=== PATIENT | male | born 1970 | race Two or more races ===

== ENCOUNTER 2018-09-15 11:45 | Emergency (ER) | payer BC ==
[2018-09-15] MEDS ORDERED: Sodium Chloride 0.9% 10 ML Syringe FLUSH PRN (12:15)
--- NOTE | 2018-09-15 12:31 | EDM.PDOC ---
ED HPI GENERAL MEDICAL PROBLEM - General Chief Complaint: Cardiovascular Problem Stated Complaint: HEART RACING - SOB X 1 WEEK Time Seen by Provider: 09/15/18 12:00 Source of Information: Reports: Patient History Limitations: Reports: Intoxication - History of Present Illness INITIAL COMMENTS - FREE TEXT/NARRATIVE: 48 year old male presents for evaluation and treatment of chest tightness, palpations and shortness of breath. Patient for the last week states he's been experiencing a racing heart, tightness in his chest and shortness of breath. Reports symptoms with exertion, little to no symptoms at rest. Denies any fevers, chills, nausea, vomiting, lightheadedness, dizziness, fevers, chills, cough or abdominal pain. No pain or swelling in his legs. Patient also feels he is going to the bathroom more than normal. Denies any acute polydipsia. Patient reports recent dental surgery, wisdom teeth extraction done under local sedation. Did not utilize pain medication. Finished course of antibiotics. Patient reports he resided in [place]. In [place] for work. Did drive to [place] a couple of weeks ago. Duration: Week(s): (1) - Related Data Allergies Allergy/AdvReac Type Severity Reaction Status Date / Time No Known Allergies Allergy Verified 09/15/18 11:59 Home Meds: Home Meds Albuterol [Ventolin HFA] 1 puff INH Q4H PRN #1 inhaler 09/15/18 [Rx] Ibuprofen [Ibu] 800 mg PO ASDIRECTED PRN 09/15/18 [History] Inhaler, Assist Devices [Space Chamber Plus] 1 each MC ASDIRECTED PRN #1 spacer 09/15/18 [Rx] Pantoprazole Sodium 40 mg PO DAILY 09/15/18 [History] Past Medical History HEENT History: Reports: Impaired Vision Cardiovascular History: Reports: High Cholesterol Other Cardiovascular History: off medication for over a year Gastrointestinal History: Reports: GERD Musculoskeletal History: Reports: Arthritis - Past Surgical History HEENT Surgical History: Reports: Oral Surgery Musculoskeletal Surgical History: Reports: Carpal Tunnel Social & Family History - Family History Family Medical History: Noncontributory Respiratory: Reports: Interstitial Lung Disease - Tobacco Use Smoking Status *Q: Current Every Day Smoker Years of Tobacco use: 10 Packs/Tins Daily: 1 - Caffeine Use Caffeine Use: Reports: Coffee, Energy Drinks - Recreational Drug Use Recreational Drug Use: No ED ROS GENERAL - Review of Systems Review Of Systems: See Below Constitutional: Denies: Fever, Chills Respiratory: Denies: Cough Cardiovascular: Reports: Chest Pain (reports chest tightness), Dyspnea on Exertion, Palpitations. Denies: Edema, Lightheadedness, Syncope Endocrine: Reports: Polyuria. Denies: Polydypsia GI/Abdominal: Denies: Abdominal Pain, Nausea, Vomiting Neurological: Denies: Dizziness, Headache, Syncope ED EXAM, GENERAL - Physical Exam Exam: See Below Exam Limited By: No Limitations General Appearance: Alert, WD/WN, No Apparent Distress Nose: Normal Inspection Throat/Mouth: Normal Inspection, Normal Lips, Normal Voice, No Airway Compromise Respiratory/Chest: No Respiratory Distress, Lungs Clear, Normal Breath Sounds Cardiovascular: Normal Peripheral Pulses, Regular Rate, Rhythm, No Murmur GI/Abdominal: Normal Bowel Sounds, Soft, Non-Tender Neurological: Alert, Oriented, Normal Cognition Psychiatric: Normal Affect, Normal Mood Skin Exam: Warm, Dry, Normal Color EKG INTERPRETATION EKG Date: 09/15/18 Time: 12:33 Rhythm: NSR Rate (Beats/Min): 77 Canones: Normal P-Wave: Present QRS: Normal ST-T: Normal QT: Normal EKG Interpretation Comments: NSR at 77 bpm. Poor "r" wave progression. Reviewed by myself and Dr. Warner. Course - Vital Signs Last Recorded V/S: Last Vital Signs Temp 98.5 F 09/15/18 12:03 Pulse 87 09/15/18 14:08 Resp 18 09/15/18 14:08 BP 134/91 H 09/15/18 14:08 Pulse Ox 97 09/15/18 14:08 - Orders/Labs/Meds Orders: Active Orders 24 hr Category Date Time Status Cardiac Monitoring [RC] . DIRECTED Care 09/15/18 12:13 Active EKG Documentation Completion [RC] ASDIRECTED Care 09/15/18 12:14 Active Peripheral IV Care [RC] . DIRECTED Care 09/15/18 12:15 Active Peripheral IV Insertion Adult [OM.PC] Routine Oth 09/15/18 12:15 Ordered EKG 12 Lead [EK] Stat Ther 09/15/18 12:13 Ordered Labs: Laboratory Tests 01/22/19 01/22/19 01/22/19 Range/Units 12:20 12:20 12:20 WBC 4.35 (4.23-9.07) K/mm3 RBC 6.23 H (4.63-6.08) M/mm3 Hgb 16.4 (13.7-17.5) gm/L Hct 48.6 (40.1-51.0) % MCV 78.0 L (79.0-92.2) fl MCH 26.3 (25.7-32.2) pg MCHC 33.7 (32.2-35.5) g/dl RDW Std Deviation 43.9 (35.1-43.9) fL Plt Count 296 (163-337) K/mm3 MPV 8.9 L (9.4-12.3) fl Neut % (Auto) 54.1 (34.0-67.9) % Lymph % (Auto) 30.3 (21.8-53.1) % Cass % (Auto) 10.8 (5.3-12.2) % Eos % (Auto) 4.6 (0.8-7.0) Baso % (Auto) 0.2 (0.1-1.2) % Neut # (Auto) 2.35 (1.78-5.38) K/mm3 Lymph # (Auto) 1.32 (1.32-3.57) K/mm3 Cass # (Auto) 0.47 (0.30-0.82) K/mm3 Eos # (Auto) 0.20 (0.04-0.54) K/mm3 Baso # (Auto) 0.01 (0.01-0.08) K/mm3 Manual Slide Review Abnormal smear D-Dimer, Quantitative < 0.19 L (0.19-0.50) mg/L Sodium 140 (136-145) mEq/L Potassium 3.9 (3.5-5.1) mEq/L Chloride 102 (98-107) mEq/L Carbon Dioxide 29 (21-32) mEq/L Anion Gap 12.9 (5-15) BUN 14 (7-18) mg/dL Creatinine 1.2 (0.7-1.3) mg/dL Est Cr Clr Drug Dosing 72.04 mL/min Estimated GFR (MDRD) > 60 (>60) mL/min BUN/Creatinine Ratio 11.7 L (14-18) Glucose 91 (74-106) mg/dL Calcium 9.3 (8.5-10.1) mg/dL Total Bilirubin 1.1 H (0.2-1.0) mg/dL AST 23 (15-37) U/L ALT 44 (16-63) U/L Alkaline Phosphatase 100 (46-116) U/L CK-MB (CK-2) 1.8 (0-3.6) ng/ml Troponin I < 0.017 (0.00-0.056) ng/mL Total Protein 7.7 (6.4-8.2) g/dl Albumin 4.1 (3.4-5.0) g/dl Globulin 3.6 gm/dL Albumin/Globulin Ratio 1.1 (1-2) TSH 3rd Generation 1.959 (0.358-3.74) uIU/mL Meds: Medications Discontinued Medications Generic Name Dose Route Start Last Admin Trade Name Freq PRN Reason Stop Dose Admin Sodium Chloride 10 ml 09/15/18 12:15 09/15/18 12:28 Saline Flush FLUSH 10 ml ASDIRECTED PRN Administration Keep Vein Open - Radiology Interpretation Free Text/Narrative:: Chest: 2 views of the chest were obtained. Comparison: No prior chest x-ray. Heart size is normal. Tortuous thoracic aorta is seen. Lungs are clear with no acute parenchymal change. Bony structures appear within normal limits. Impression: 1. Nothing acute is seen on 2 view chest x-ray. - Re-Assessments/Exams Free Text/Narrative Re-Assessment/Exam: 09/15/18 13:46 I reviewed the labs, EKG and imaging with the patient. Suspect might be getting a little bit of exercise-induced asthma. We will try him on albuterol inhaler and follow-up if not much better. Recommend smoking cessation as this is worsening his symptoms. He is instructed to the ER if his symptoms change or worsen. Discharge instructions as documented. Departure - Departure Time of Disposition: 13:46 Disposition: Home, Self-Care 01 Condition: Fair Clinical Impression: Exercise-induced asthma Prescriptions: Albuterol [Ventolin HFA] 1 puff INH Q4H PRN #1 inhaler PRN Reason: Shortness Of Breath Inhaler, Assist Devices [Space Chamber Plus] 1 each MC ASDIRECTED PRN #1 spacer PRN Reason: Shortness Of Breath Instructions: Asthma, Adult Referrals: PCP,Not In Area [Primary Care Provider] - Nalini Madrid MD [Physician] - Forms: ED Department Discharge Additional Instructions: Use the inhaler as instructed with the spacer. One or 2 puffs every 4-6 hours as needed for shortness of breath. Follow-up with family medicine in 2 weeks for recheck of your symptoms. Here in [place] recommend Dr. Madrid. Call [phone] to schedule with her. Recommend stopping smoking or at least reducing your cigarette usage. Please return to the ER if your symptoms change or worsen. - My Orders Last 24 Hours: My Active Orders 09/15/18 12:13 Cardiac Monitoring [RC] . DIRECTED EKG 12 Lead [EK] Stat 09/15/18 12:14 EKG Documentation Completion [RC] ASDIRECTED 09/15/18 12:15 Peripheral IV Care [RC] . DIRECTED Peripheral IV Insertion Adult [OM.PC] Routine - Assessment/Plan Last 24 Hours: My Active Orders 09/15/18 12:13 Cardiac Monitoring [RC] . DIRECTED EKG 12 Lead [EK] Stat 09/15/18 12:14 EKG Documentation Completion [RC] ASDIRECTED 09/15/18 12:15 Peripheral IV Care [RC] . DIRECTED Peripheral IV Insertion Adult [OM.PC] Routine
--- NOTE | 2018-09-15 14:43 | CR ---
Chest: Two views of the chest were obtained. Comparison: No prior chest x-ray. Heart size is normal. Tortuous thoracic aorta is seen. Lungs are clear with no acute parenchymal change. Bony structures appear within normal limits. Impression: 1. Nothing acute is seen on two-view chest x-ray. Diagnostic code #1
== END 2018-09-15 14:07 | disposition home or self-care (01) ==
LOC: JD.ED 11:45
DX: J45.909 Unspecified asthma, uncomplicated (principal); F17.210 Nicotine dependence, cigarettes, uncomplicated
CPT/HCPCS: 36415; 71046; 71046-26; 80053; 82553; 84443; 84484; 85025; 85379; 93005; 93010; 99284; 99285-25

== ENCOUNTER 2018-09-16 13:28 | Emergency (ER) | payer BC ==
[2018-09-16] MEDS ORDERED: LORazepam 0.5 MG Tab PO ONE (14:32)
--- NOTE | 2018-09-16 14:41 | EDM.PDOC ---
ED HPI GENERAL MEDICAL PROBLEM - General Chief Complaint: Respiratory Problem Stated Complaint: RESPIRATORY ISSUES Time Seen by Provider: 09/16/18 13:42 Source of Information: Reports: Patient, RN Notes Reviewed History Limitations: Reports: No Limitations - History of Present Illness INITIAL COMMENTS - FREE TEXT/NARRATIVE: Patient is a 48 year old male who presents to the ED for the evaluation of chest pressure/tightness and SOB with activity. He states that he was in the ED yesterday for his heart racing and SOB issues. He was given an albuterol inhaler at that time; he did state that he tried to use this, but it did not provide much relief of his symptoms. He states that this has been present for around 1 week. He is originally from [place] and his PCP is there. He still feels that his heart is racing and that he is having an issue catching his breath now even at rest. He is a 1ppd smoker for 10 years now, but did throw his cigarettes out after lunch today. He does drink a 30 oz yeti cup of coffee in the mornings, he does deny any further drug use. He uses alcohol only socially. He has been in [place] since February of 2018, and has been here in times past a few years ago, and has not had any issues like this. He denies any major life changes/stressors. 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 He denies any fevers/chills, nausea/vomiting/diarrhea or abdominal pain. He only admits to the SOB and feelings of his heart racing with some chest pressure. - Related Data Allergies Allergy/AdvReac Type Severity Reaction Status Date / Time No Known Allergies Allergy Verified 09/15/18 11:59 Home Meds: Home Meds Albuterol [Ventolin HFA] 1 puff INH Q4H PRN #1 inhaler 09/15/18 [Rx] Ibuprofen [Ibu] 800 mg PO ASDIRECTED PRN 09/15/18 [History] Inhaler, Assist Devices [Space Chamber Plus] 1 each MC ASDIRECTED PRN #1 spacer 09/15/18 [Rx] Pantoprazole Sodium 40 mg PO DAILY 09/15/18 [History] LORazepam [Ativan] 0.5 mg PO Q6HR PRN #40 tablet 09/16/18 [Rx] Past Medical History HEENT History: Reports: Impaired Vision Cardiovascular History: Reports: High Cholesterol Other Cardiovascular History: off medication for over a year Gastrointestinal History: Reports: GERD Musculoskeletal History: Reports: Arthritis - Past Surgical History HEENT Surgical History: Reports: Oral Surgery Musculoskeletal Surgical History: Reports: Carpal Tunnel Social & Family History - Family History Family Medical History: Noncontributory Respiratory: Reports: Interstitial Lung Disease - Tobacco Use Smoking Status *Q: Current Every Day Smoker Tobacco Use Within Last Twelve Months: Cigarettes Years of Tobacco use: 10 Packs/Tins Daily: 1 Smoking Cessation Information Provided To Patient: Yes - Caffeine Use Caffeine Use: Reports: Coffee, Soda - Recreational Drug Use Recreational Drug Use: No ED ROS GENERAL - Review of Systems Review Of Systems: See Below Constitutional: Denies: Fever, Chills, Weakness, Fatigue HEENT: Reports: No Symptoms Respiratory: Reports: Shortness of Breath. Denies: Wheezing, Cough, Sputum Cardiovascular: Reports: Chest Pain (chest pressure), Dyspnea on Exertion. Denies: Lightheadedness Endocrine: Reports: No Symptoms GI/Abdominal: Reports: No Symptoms : Reports: No Symptoms Musculoskeletal: Reports: No Symptoms Skin: Reports: No Symptoms Neurological: Reports: No Symptoms Psychiatric: Reports: No Symptoms Hematologic/Lymphatic: Reports: No Symptoms Immunologic: Reports: No Symptoms ED EXAM, GENERAL - Physical Exam Exam: See Below Exam Limited By: No Limitations General Appearance: Alert, WD/WN, No Apparent Distress Eye Exam: Bilateral Eye: EOMI, Normal Inspection, PERRL Ears: Normal External Exam Nose: Normal Inspection Throat/Mouth: Normal Inspection, Normal Oropharynx Head: Atraumatic, Normocephalic Neck: Normal Inspection, Supple, Non-Tender, Full Range of Motion Respiratory/Chest: No Respiratory Distress, Lungs Clear, Normal Breath Sounds, No Accessory Muscle Use, Chest Non-Tender Cardiovascular: Normal Peripheral Pulses, Regular Rate, Rhythm, No Edema, No JVD , No Murmur GI/Abdominal: Normal Bowel Sounds, Soft, Non-Tender, No Distention Back Exam: Normal Inspection, Full Range of Motion Extremities: Normal Inspection, Normal Capillary Refill Neurological: Alert, Oriented, Normal Cognition, No Motor/Sensory Deficits Psychiatric: Normal Affect, Normal Mood, Anxious (pt is chewing gum and twitching feet, he is visibly anxious.) Skin Exam: Warm, Dry, Intact, Normal Color, No Rash Course - Vital Signs Last Recorded V/S: Last Vital Signs Temp 98.1 F 09/16/18 13:36 Pulse 102 H 09/16/18 13:48 Resp 16 09/16/18 13:36 BP 161/101 H 09/16/18 13:36 Pulse Ox 93 L 09/16/18 13:48 - Orders/Labs/Meds Meds: Medications Discontinued Medications Generic Name Dose Route Start Last Admin Trade Name Yang PRN Reason Stop Dose Admin Lorazepam 0.5 mg 09/16/18 14:32 09/16/18 14:48 Ativan PO 09/16/18 14:33 0.5 mg ONETIME ONE Administration - Re-Assessments/Exams Free Text/Narrative Re-Assessment/Exam: 09/16/18 14:44 Pt presents to the ED for the evaluation of SOB with activity and at rest and chest pressure. His workup including EKG and CXR were WNL yesterday in ED. These will not be repeated today, as there is no obvious major change in his respiratory or cardiac status. His nurse monitoring demonstrates NSR at a rate of 85bpm, his O2 sats are between 94-97% and is in no visible respiratory distress at this time. I believe he may be having some increased anxiety, and have ordered 0.5mg Ativan to see if this helps calm his nerves. I also talked with him about the need for possible nicotine supplementation if he is trying to quit smoking cigarettes, as just throwing them out may not be in his best interests as he is a 1ppd smoker for 10 years. 09/16/18 15:29 The patient did take the ativan 0.5mg PO and he feels that this has helped. I will provide him enough tabs for 1.5-2weeks so that he may set up with a primary care provider for further management. Departure - Departure Time of Disposition: 15:32 Disposition: Home, Self-Care 01 Condition: Fair Clinical Impression: Anxiety - Discharge Information *PRESCRIPTION DRUG MONITORING PROGRAM REVIEWED*: No *COPY OF PRESCRIPTION DRUG MONITORING REPORT IN PATIENT GAIL: No Instructions: Steps to Quit Smoking, [id number], Generalized Anxiety Disorder , Adult, Living With Anxiety Referrals: PCP,Not In Area [Primary Care Provider] - Forms: ED Department Discharge Additional Instructions: You have been evaluated in the ED for chest pressure and shortness of breath. It is likely that these symptoms are due to anxiety. You have been provided with Ativan 0.5mg every 6 hours as needed for feelings of anxiety. This has been sent to [facility] in [place] in [place]. You will need to set up with a primary care doctor of your choice in the next week or two for further management and continuation of this medication. Please call [phone] and set up with a family practice provider of your choosing. Also recommend obtaining a nicotine patch or replacement to help to quit smoking. Start with 21 mg patch and work your way down from there. Please return to ED if your symptoms should change or worsen.
== END 2018-09-16 15:49 | disposition home or self-care (01) ==
LOC: JD.ED 13:28
DX: F41.9 Anxiety disorder, unspecified (principal); F17.210 Nicotine dependence, cigarettes, uncomplicated
CPT/HCPCS: 99283; A9270